=== PATIENT | female | born 1990 | race African-American/Black ===

== ENCOUNTER 2016-10-13 13:31 | Emergency (ER) | payer MEDICAID ==
[~2016-10-13] VITALS: Ht 165.1 cm; Wt 83.0 kg
[~2016-10-13 13:31] MED LIST: IBUP-232 PO; LABE100T2 PO; OXYC1TAB63 PO; TRICTAB PO
[2016-10-13 13:36] VITALS: BP 134/81; PULSE 89; RESP 16; TEMP 98.7; O2SAT 98
[2016-10-13] MEDS ORDERED: ZOFR4TAB PO (14:07)
--- NOTE | 2016-10-13 14:07 | PD ---
HPI . Nausea, vomiting and diarrhea Chief Complaint: GI Complaint Time Seen by Provider: 14:00 Travel History International Travel<30 days: No Contact w/Intl Traveler<30days: No Traveled to known affect area: No History of Present Illness HPI This patient presents with the acute onset of nausea, vomiting and diarrhea. No fever. No abdominal pain. No urinary tract symptoms. No sick contacts. No modifying factors. 2 episodes of vomiting and 2 episodes of diarrhea. PFSH Past Medical History Immunizations Current: No ?: Not LMP: "2 weeks ago" Para: 1 Social History Alcohol Use: No Tobacco Use: No Substance Use: No Allergies-Medications (Allergen,Severity, Reaction): Coded Allergies: No Known Allergies (Verified , 10/13/16) Reported Meds & Prescriptions Reported Meds & Active Scripts Active Review of Systems Except as stated in HPI: all other systems reviewed are Neg General / Constitutional: No: Fever, Chills Gastrointestinal: Positive: Nausea, Vomiting, Diarrhea, No: Abdominal Pain Genitourinary: No: Urgency, Frequency, Dysuria Physical Exam Narrative GENERAL: She was drinking a bottle of apple juice when I went in the room. She tolerated this well. SKIN: Warm and dry. HEAD: Atraumatic. Normocephalic. EYES: Pupils equal and round. Extraocular movements are intact. ENT: No nasal bleeding or discharge. Mucous membranes pink and moist. NECK: Trachea midline. Neck is supple. CARDIOVASCULAR: Regular rate and rhythm. Heart sounds are normal. RESPIRATORY: No accessory muscle use. Lungs are clear with full air movement throughout. GASTROINTESTINAL: Abdomen soft, non-tender, nondistended. MUSCULOSKELETAL: No obvious deformities. No edema. NEUROLOGICAL: Awake and alert. No obvious cranial nerve deficits. Motor grossly within normal limits. Normal speech. PSYCHIATRIC: Appropriate mood and affect; insight and judgment normal. Data Data Last Documented VS Vital Signs Date Time Temp Pulse Resp B/P (MAP) Pulse Ox O2 Delivery O2 Flow Rate FiO2 10/13/16 13:36 98.7 89 16 134/81 (98) 98 Room Air MDM Medical Decision Making Medical Screen Exam Complete: Yes Emergency Medical Condition: Yes Differential Diagnosis Differential diagnosis includes but is not limited to viral gastritis, food poisoning, pancreatitis, pneumonia, hepatitis, acute coronary syndrome, Narrative Course This patient presents with chief complaint of nausea, vomiting and diarrhea. She is tolerating by mouth fluids. She has a benign exam. I will write her a prescription for Zofran and discharged to home. Diagnosis Primary Impression: Gastroenteritis Patient Instructions: Gastroenteritis (DC), General Instructions Med/Other Pt SpecificInfo: Prescription(s) given Scripts Ondansetron (Zofran) 4 Mg Tab 4 MG PO Q6HR Y for NAUSEA OR VOMITING, #12 TAB 0 Refills Prov: Nayeli Kenyon MD 10/13/16 Disposition: 01 DISCHARGE HOME Condition: Stable Nayeli Kenyon MD Oct 13, 2016 14:07
[2016-10-13] MEDS ORDERED: ONDANSETRON ODT 4 MG TAB PO ONE (14:45)
== END 2016-10-13 14:48 | disposition home or self-care (01) ==
LOC: PHED 13:31
DX: K52.9 Noninfective gastroenteritis and colitis, unspecified (principal)
CPT/HCPCS: 99283